=== PATIENT | female | born 1930 | race Caucasian/White ===

== ENCOUNTER 2018-02-19 05:25 | Observation (INO) ==
[2018-02-19] MEDS ORDERED: Heparin - SQ 10,000 UNITS/ML Vial SQ PRN (05:48)
[2018-02-19] MEDS ORDERED: Metoprolol Tartrate 25 MG Tablet PO ONE (06:15)
[2018-02-19] MEDS ORDERED: Sodium Chlor 0.9% Inj 500 ML IV.CONT ONE (06:15)
[2018-02-19] MEDS ORDERED: Chlorhexidine Gluconate 2% 1 Pack (2 Cloths) TOPICAL ONE (06:15)
[2018-02-19] MEDS ORDERED: Ketamine Inj 50 MG/5 ML Syringe IV.PUSH ONE (06:22)
[2018-02-19] MEDS ORDERED: Sugammadex Inj 200 MG/2 ML Vial IV.PUSH ONE (06:22)
[2018-02-19] MEDS ORDERED: Lidocaine PF 1% Inj 5 ML Syringe OTHER ONE (07:30)
[2018-02-19] MEDS ORDERED: Labetalol HCl Inj 100 MG/20 ML Vial IV.CONT ONE (07:30)
[2018-02-19] MEDS ORDERED: Sodium Chlor 0.9% Inj 250 ML IV.CONT ONE (07:30)
[2018-02-19] MEDS ORDERED: Glycopyrrolate Inj 1 MG/5 ML Syringe IV.PUSH ONE (07:30)
[2018-02-19] MEDS ORDERED: Methylene Blue Inj 100 MG/10 ML Vial OTHER ONE ×2 (10:22→11:30)
[2018-02-19] MEDS ORDERED: Lidocaine 1%/Epinephrine 1:100,000 Inj 20 ML Vial INFILTRATN ONE ×2 (10:25→11:30)
[2018-02-19] MEDS ORDERED: LORazepam 0.5 MG Tablet PO PRN (11:19)
[2018-02-19] MEDS ORDERED: Dextrose 50% in Water 50 ML Vial IV.PUSH PRN (11:22)
[2018-02-19] MEDS ORDERED: *Ondansetron Inj 4 MG/2 ML Vial PERIprocedural Use ONLY ONE (11:46)
[2018-02-19] MEDS ORDERED: *morphine SULFATE 10 MG/ML PERIprocedure ONLY ONE (11:46)
[2018-02-19] MEDS ORDERED: fentaNYL Citrate Inj 100 MCG/2 ML Ampul ONE (11:48)
[2018-02-19] MEDS: KCL 20 mEq/D5W/NaCl 0.45% Inj 1,000 ML IV.CONT SCH (12:00)
[2018-02-19] MEDS ORDERED: Ketorolac Inj 30 MG/ML (IVP) Vial ONE (12:02)
[2018-02-19] MEDS: Ketorolac Inj 30 MG/ML (IVP) Vial IV.PUSH SCH ×2 (12:10→20:42)
[2018-02-19 13:18] VITALS: RESP 16
[2018-02-19] MEDS ORDERED: *Enalaprilat Inj 1.25 MG/ML Vial IV.PUSH ONE (14:13)
--- NOTE | 2018-02-19 15:42 | MP ---
cc: Megan Richards MD, Steven MD DATE OF OPERATION: 02/19/2018 DATE OF PROCEDURE: 02/19/2015. PREOPERATIVE DIAGNOSES: 1. Pelvic mass. 2. Intermittent pelvic pain. POSTOPERATIVE DIAGNOSES: 1. Right ovarian cystadenoma with torsion. 2. Extensive pelvic adhesions. PROCEDURE: Robotic-assisted laparoscopic hysterectomy, bilateral salpingo-oophorectomy (with resection of a 14 cm right ovarian mass), extensive lysis of adhesions, right ureterolysis. SURGEON: Megan Richards MD PST SUPERVISOR: [place] reproductive healthcare assistant. ANESTHESIA: General endotracheal anesthesia. ESTIMATED BLOOD LOSS: 100 mL IV FLUIDS: 1500 mL URINE OUTPUT: 1000 mL HISTORY: This is an 87-year-old female, who presented recently to the emergency room with acute onset of intense pelvic and abdominal pain, found on imaging to have a mass that at the time measured approximately 11 cm - 12 cm predominantly cystic. There was concern it may have torsed, but her symptoms soon stopped such that she was stable, discharged to home. She followed up in the [facility] office where she was counseled regarding these findings of a mass; smooth walled, predominantly cystic, but fairly sizable and probably causing intermittent torsion. She is seen in the preop holding area again today accompanied by her where the findings and the plan of care were discussed. Questions were asked and answered. She expressed good understanding and would like to move forward with surgical evaluation and management. FINDINGS: Upon entry into the peritoneal cavity, there is descending colon and loops of small bowel adherent to the right lateral abdominal wall with somewhat omentum adherent as well. In the right lower quadrant there was an approximately 14 cm smooth walled fluid filled mass. There was torsion detected in the gonadal vessels and appears to 2 complete rotations of torsion. There is no overt necrosis. There was a profound inflammatory response with the ileum and cecum adherent low in the pelvis and adherent to this mass and the mass is somewhat fixed to the right pelvic sidewall and the ureter is adherent to the posterolateral aspect of this right mass. The left ovary and tube grossly appeared normal. The uterus appears normal. There were no peritoneal implants. There were no appreciably enlarged pelvic or paraaortic lymph nodes. The liver diaphragm edges were smooth. The large and small bowel and adjacent mesentery were without implants. Frozen section analysis of the mass suggested to be a benign smooth walled cyst. No evidence of malignancy. STATEMENT OF COMPLEXITY: The complexity of this case was increased with estimated additional 1 hour lysing adhesions to gain access into the peritoneal cavity and then to mobilize the mass away from adjacent structures to dissect the bowel off of the mass and to isolate the ureter along its course in the right pelvis. Modifier should be applied accordingly. DESCRIPTION OF PROCEDURE: She was taken to the operating room and placed in dorsal lithotomy position after general endotracheal anesthesia was administered. A timeout was undertaken. She was identified by site recognition and hospital ID [email or web address] and the proposed procedure was reviewed and confirmed. She was carefully positioned in padded Neymar stirrups. Her arms were padded and secured to the sides. She was further secured to the operating table with egg crate padding and taping across chest over the shoulder fashion. All sites noted to be properly aligned with no malalignments or pressure points. She was prepped and draped in usual sterile fashion and placed in lithotomy position. The cervix grasped. Uterine cavity sounded to 6 cm. Cervix was dilated and a small VCare manipulator was inserted and secured in usual fashion. Spears catheter placed in the bladder. She was returned to low lithotomy position. Change of sterile gauze was undertaken. We completed draping in anticipation of the above laparoscopy. We confirmed that an orogastric tube was in the stomach on suction and with manual elevation of the abdominal wall, a 5 mm cannula was introduced into the left upper quadrant. Carbon dioxide gas was insufflated and an atraumatic entry was confirmed. There were adhesions in the right upper quadrant, so the cannula was placed in the midline and then sharp dissection with focal cautery was used to take down the omentum and loops of bowel that were adherent in the right upper quadrant. Now an 8 mm cannula was able to be placed in the right upper quadrant and another 8 mm cannula in the left lateral quadrant and the original 5 mm exchanged for an 8 mm cannula. Additional lysis of adhesions was carried out to initiate lysis of adhesions in the right pelvis. She was placed in Trendelenburg position. Peritoneal washings were obtained for cytology. The anatomy was surveyed with findings as described above. The small bowel was folded back on its mesentery root to the extent possible and 3 Ray-Abdifatah sponges were placed at the root of the small bowel mesentery. The robotic system was brought into the operative field and attached in the usual fashion. Monopolar scissors, fenestrated bipolar forceps and ProGrasp manipulator was placed in arms #1, 2, and 3 respectively and I took my place at the surgeon's console. Extensive time was taken and required for the extensive lysis of adhesions to free the terminal ileum and cecum from their adherence to the mass and to the right pelvic sidewall. This was taken down in a stepwise fashion with sharp dissection. The mass was freed from its attachment to the round ligament and right pelvic sidewall with sharp dissection until retroperitoneal space could be opened and the retroperitoneal space was dissected further. A window in the peritoneum was made just below the right utero-ovarian ligament to initiate isolation of the gonadal vessels. The ureter was densely adherent to the posterolateral aspect of this mass with sharp dissection and blunt dissection. The ureter was freed along the course in the pelvis and freed from its near attachments to the gonadal vessels until ureterolysis had allowed the ureter to be separate from the mass. The right round ligament was isolated, cauterized, and transected. Further dissection and lysis of adhesion were carried out. Now, the gonadal vessels were isolated; 720 degrees of torsion noted both with the gonadal vessels and the utero-ovarian ligament as they entered the ovarian hilum. The gonadal vessels were cauterized at the level of the pelvic brim and transected. Dissection of the posterior peritoneum was carried out on the right side down to the level of the cervix and the right vesicouterine peritoneum was dissected off the lower uterine segment and cervix. The right uteroovarian ligament was further skeletonized and the mass was retracted toward the left side to give access to the uterine vessels. The uterine vessels were skeletonized and isolated, cauterized, and transected as were the cardinal, paracervical and the uterosacral ligaments, thereby freeing those attachments to the right side of the uterus and cervix. Attention was directed toward the left side. The left round ligament was isolated, cauterized, and transected. Anterior and posterior leaves of the broad ligament were opened. Retroperitoneal dissection was carried out. The left ureter was identified. The infundibulopelvic ligament was isolated. The intervening peritoneum was opened. The infundibulopelvic ligament was isolated to the level of the pelvic brim where it was cauterized and transected. Posterior peritoneum opened along the left side of the uterus and cervix. In the left vesicouterine, peritoneum was dissected off the lower uterine segment and cervix. The left uterine vessels were skeletonized, cauterized and transected as were the cardinal, paracervical and uterosacral ligaments. Circumferential colpotomy performed the cervix from the upper vagina and uterus, cervix and left tube and ovary were delivered transvaginally. I left the surgeon's console at this point to help facilitate transvaginal delivery of the specimen. She was placed in lithotomy position. Traction was used to help deliver the proximal portion of the cystic mass into the vagina and through the introitus. Once the capsule of the mass was visible beyond the introitus a small opening was made with sharp dissection and suction was used to collapse the cystic mass and it was thereby easily delivered transvaginally. The specimen now including uterus, cervix, both tubes and ovaries sent to pathology. Then Pneumo-Occluder balloon was placed in the vagina to maintain pneumoperitoneum. I returned to the surgeon's console. Instruments 1 and 3 exchanged for needle drivers; a 0-Vicryl suture was introduced. The vaginal cuff was closed starting at the left corner; full-thickness closure, incorporating the posterior edge of the uterosacral ligament, posterior peritoneum and tied via instrument tie. Closure was held on countertraction as a running continuous full-thickness closure was carried across the vaginal apex to the contralateral corner where they were similarly fixed, secured and tied. The needle was cut and removed. Small bleeders were rendered hemostatic with bipolar cautery. Integrity of the bladder was checked by filling the bladder with saline dyed with methylene blue. There were no areas of blue visible and no thinning of the bladder. Certainly no extravasation of dye. There was a good margin between the bladder edge and the vaginal cuff suture line and good peristalsis of ureters bilaterally; the bladder was drained. To assist in continued hemostasis, some hemostatic Sangeetha powder was placed across the vaginal cuff in the right pelvis and abdomen dissection beds with good hemostasis. Preliminary pathology came back showing benign findings. Therefore, it was felt that all reasonable surgical objectives had been completed. The robotic instruments were removed. The robotic system was disengaged from the operative field. I reentered the bedside under sterile condition. Each of the 3 Ray-Abdifatah sponges that had been placed in the peritoneal cavity were removed. They were removed individually and inspected and noted to be removed in entirety. The 12 mm fascial defect was closed with interrupted 0-Vicryl sutures using a needle pass fascial closure apparatus. They were tied securely which rendered the fascia completely airtight and hemostatic. The remaining cannulas were withdrawn. Carbon dioxide gas was removed from the peritoneal cavity and these incisions were closed with 3-0 Vicryl subcutaneous and 0-Vicryl, subcuticular with Steri-Strips. She was returned to dorsal lithotomy position. Pelvic exam confirmed the vaginal cuff was well-supported, hemostatic. There were no proximal vaginal lacerations; however, there were circumferential areas of irritation and mucosal irritation at the introitus without active bleeding and the remainder of the hemostatic Sangeetha powder was placed in the vagina and around the introitus, which rendered this completely hemostatic. There were no remaining foreign objects in the vagina. Preliminary and final counts were correct. She was returned to dorsal supine position and was pending reversal of anesthesia when I left the operating room to precede her to the postanesthesia care unit. MD SHELDON Biswas/ted , 12:12 PM , 12:37 PM
[2018-02-19] MEDS: Gabapentin 300 MG Capsule PO SCH (20:43)
[2018-02-19] MEDS: Famotidine 20 MG Tablet PO SCH (20:43)
[2018-02-20] MEDS: KCL 20 mEq/D5W/NaCl 0.45% Inj 1,000 ML IV.CONT SCH (01:20)
[2018-02-20 04:16] LABS: Baso % (Auto) 0.4 % (0.0-2.0); Eos % (Auto) 0.5 % (0.0-4.0); Hematocrit 29.2 % (35.0-46.0); Hemoglobin 9.7 gm/dL (11.6-15.3); Lymph # (Auto) 1.3 th/mm3 (1.0-4.8); Mean Corpuscular HGB Conc 33.1 % (32.0-36.0); Mean Corpuscular Volume 81.5 fL (80.0-100.0); Mean Platelet Volume 7.8 fL (7.0-11.0); Mono # (Auto) 0.6 th/mm3 (0.0-0.9); Mono % (Auto) 9.7 % (0.0-8.0); Neut % (Auto) 67.4 % (16.0-70.0); Platelet Count 162 th/mm3 (150-450); Red Blood Count 3.58 mil/mm3 (4.00-5.30); Red Cell Distribution Width 15.4 % (11.6-17.2)
[2018-02-20] MEDS: Ketorolac Inj 30 MG/ML (IVP) Vial IV.PUSH SCH ×2 (04:57→08:35)
[2018-02-20 06:48] LABS: Carbon Dioxide 23.6 meq/L (21.0-32.0)
[2018-02-20 06:49] LABS: Calcium 6.6 mg/dL (8.5-10.1)
[2018-02-20 07:15] LABS: Total Protein 5.4 g/dL (6.4-8.2)
[2018-02-20] MEDS: Gabapentin 300 MG Capsule PO SCH (08:35)
[2018-02-20] MEDS: Famotidine 20 MG Tablet PO SCH (08:35)
[2018-02-20] MEDS ORDERED: Pantoprazole Sodium 20 MG DR Tablet PO SCH (09:00)
[2018-02-20 11:47] VITALS: BP 106/51; PULSE 62; TEMP 98.2; O2SAT 95
--- NOTE | 2018-02-20 13:19 | MD ---
cc: Megan Richards MD DATE OF DISCHARGE: 02/20/2018 DATE OF ADMISSION: 02/19/2018 DATE OF DISCHARGE: 02/20/2018. PROCEDURE: 02/19/2018: Robotic-assisted laparoscopic hysterectomy, bilateral salpingo-oophorectomy with resection of 14 cm ovarian mass with torsion, extensive lysis of adhesions and right ureterolysis. HOSPITAL COURSE: She did well in her early postoperative period and she was hemodynamically stable. Ins and outs: 3830/530-plus. Spears catheter removed pending voiding. Labs show an H and H this morning to be 9.7 and 29.2 with a preop hemoglobin of 10. Her electrolytes show BUN and creatinine of 31 and 1.72 in this individual with known preexisting renal disease and known elevated baseline creatinine. These numbers represent preexisting illness and the expected fluid shifts from surgery. PHYSICAL EXAMINATION: GENERAL: She is afebrile, pulse 59-64, respirations 16, blood pressure 93-102/45-51, O2 saturations 93% or greater; 93 while asleep. GENERAL: She is alert, oriented, in no acute distress. LUNGS: Clear. There is some mild basilar rales. CARDIOVASCULAR: Distant S1 and S2. Regular rate and rhythm. ABDOMEN: Soft. Incisions are clean and dry. GYNECOLOGIC: No bleeding. ASSESSMENT: Postoperative day number one; doing reasonably well in the early postoperative period. Findings at the time of surgery, steps taken and preliminary pathology reviewed; activities and restrictions are again discussed. She is made aware of her objective findings; encouraged to stay hydrated, even if she does not have much of an appetite, which would be expected to improve over the next few days. Anticipate she will meet criteria for discharge to home today. She is to contact our office to schedule a followup in 1-2 weeks. We will likely recommend repeating her lab work at that time. She is also given our office number should she have any questions or problems between now and the time of scheduled followup. She is to resume her prior medications; will have a prescription for Percocet if she needs it. Otherwise, she can take her usual aybt-ang-pattezi medication. MD SHELDON Biswas/tom , 07:10 AM , 07:17 AM
== END 2018-02-20 11:46 | disposition home or self-care (01) ==
LOC: HSDI 05:25 → HSDC 05:25 → HCPC 15:54
PROVIDERS: ADMIT Obstetrics & Gynecology Gynecologic Oncology; ATTEND Obstetrics & Gynecology Gynecologic Oncology